=== PATIENT | male | born 1950 | race Caucasian/White ===

== ENCOUNTER → 2017-01-26 | Outpatient (CLI) | payer MEDICARE | END | disposition home or self-care (01) | LOC: LAB.O 11:34 | PROVIDERS: ATTEND Urology | DX: E29.1 Testicular hypofunction (principal); N42.9 Disorder of prostate, unspecified ==

== ENCOUNTER → 2017-02-14 | Outpatient (CLI) | payer MEDICARE ==
--- NOTE | 2017-02-14 11:48 | MRI ---
EXAM DESCRIPTION: Cervical Spine CLINICAL HISTORY: Pain. Neck pain with left upper extremity radiculopathy. COMPARISON: None Available. TECHNIQUE: MRI of the cervical spine is performed according to our usual protocol. FINDINGS: There is reversal of the normal cervical lordosis. 2 mm retrolisthesis of C2 on C3. 2 mm anterolisthesis of C4 on C5. Mixed Modic endplate changes at C5-C6 and C6-C7. Vertebral body stature is maintained. There is no acute fracture or destructive osseous lesion. Craniocervical junction and the cervical spinal cord are unremarkable. C2-3: Disc desiccation with moderate disc narrowing. Focal ligamentum flavum thickening. 2 to 3 mm posterior disc osteophyte complex with mild facet hypertrophy. Moderate left neural foraminal stenosis. Multifactorial mild spinal canal stenosis with residual AP diameter of the thecal sac measuring 8.6 mm. C3-4: Disc desiccation with mild disc narrowing. Moderate bilateral facet hypertrophy, left and right. Mild uncovertebral spurring. 2 mm posterior disc osteophyte complex. Mild left neural foraminal stenosis. The spinal canal and right neural foramen are patent. C4-5: Disc desiccation. Severe left and moderate right facet hypertrophy. Bilateral uncovertebral spurring. Small disc osteophyte complex. Severe left neural foraminal stenosis. The spinal canal and right neural foramen are patent. C5-6: Disc desiccation with severe disc narrowing. Moderate bilateral facet hypertrophy and right greater than left uncovertebral spurring. 3 to 4 mm posterior disc osteophyte complex which effaces the ventral aspect of the thecal sac. Multifactorial mild spinal canal stenosis with residual AP diameter of the thecal sac measuring 8.5 mm. Severe bilateral neural foraminal stenosis. C6-7: Disc desiccation with severe disc narrowing. Mild facet hypertrophy and moderate bilateral uncovertebral spurring. 4 mm posterior disc osteophyte complex which effaces the ventral aspect of the thecal sac. Flattening of the ventral aspect of the spinal cord with severe spinal canal stenosis. Residual AP diameter of the thecal sac is 6 mm. There is also severe bilateral neural foraminal stenosis. C7-T1: Disc desiccation with moderate disc narrowing. Mild facet hypertrophy and mild uncovertebral spurring with mild bilateral neural foraminal stenosis. The spinal canal is patent. IMPRESSION: 1. 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 The findings are most pronounced at C6-C7 where there is severe spinal canal stenosis and severe bilateral neural foraminal stenosis. 2. At C5-C6, there is mild spinal canal stenosis and severe bilateral neural foraminal stenosis. 3. Other levels as detailed above. Electronically signed by: Rodney Pinto MD 02/14/2017 11:47 AM CDT
== END | disposition home or self-care (01) ==
LOC: MRI 07:12
PROVIDERS: ATTEND Psychiatry & Neurology Neurology
DX: M48.02 Spinal stenosis, cervical region (principal)